=== PATIENT | female | born 1955 | race Caucasian/White ===

== ENCOUNTER → 2017-01-28 | Outpatient (CLI) | payer OTHER ==
--- NOTE | 2017-01-28 14:32 | CARD ---
APPROVED REPORT EXAM: Two-dimensional and M-mode echocardiogram with Doppler and color Doppler. Other Information Quality : Average Rhythm : NSR INDICATION Dyspnea 2D DIMENSIONS RVDd2.9 (2.9-3.5cm)Left Atrium(2D)2.8 (1.6-4.0cm) IVSd0.8 (0.7-1.1cm)Aortic Root(2D)2.6 (2.0-3.7cm) LVDd3.5 (3.9-5.9cm)LVOT Diameter1.9 (1.8-2.4cm) PWd0.8 (0.7-1.1cm)LVDs2.4 (2.5-4.0cm) FS (%) 31.5 %SV31.7 ml LVEF(%)60.4 (>50%) Aortic Valve AoV Peak Moisés.104.7cm/sAoV VTI20.3cm AO Peak GR.4.4mmHgLVOT Peak Moisés.82.6cm/s AO Mean GR.3mmHgAVA (VMAX)2.17cm2 Mitral Valve MV E Ftzhaeqm07.1cm/sMV E Peak Gr.4mmHg MV DECEL [id number] A Ddfkbujm33.7cm/s MV E Mean Gr.1mmHgMV WKV26wg E/A Ratio0.7MV A Lsbvgvkv639yh MVA (PHT)3.56cm2 Tricuspid Valve TR P. Hknntgom250wv/sRAP YHFJFRWL1ixPd TR Peak Gr.67kdPjLIPO02ktNz LEFT VENTRICLE The left ventricle is normal size. There is normal left ventricular wall thickness. Left ventricle sy stolic function is normal. The Ejection Fraction is 55-60%. There is normal LV segmental wall motion. Tissue Doppler imaging reveals mild left ventricular diastolic dysfunction. Transmitral Doppler flow pattern is Grade I-abnormal relaxation pattern. RIGHT VENTRICLE The right ventricle is normal size. The right ventricular systolic function is normal. ATRIA The left atrium size is normal. The right atrium size is normal. The interatrial septum is intact wit h no evidence for an atrial septal defect or patent foramen ovale as noted on 2-D or Doppler imaging. AORTIC VALVE The aortic valve is normal in structure and function. The aortic valve is trileaflet. Doppler and Col or Flow revealed no significant aortic regurgitation. There is no significant aortic valvular stenosi s. MITRAL VALVE The mitral valve is normal in structure and function. There is no mitral valve stenosis. Doppler and Color Flow revealed no mitral valve regurgitation noted. TRICUSPID VALVE The tricuspid valve is normal in structure and function. Doppler and Color Flow revealed trace to mil d tricuspid regurgitation. The PA pressure was estimated at 23 mmHg. There is no tricuspid valve sten osis. PULMONIC VALVE The pulmonic valve is not well visualized. Doppler and Color Flow revealed no pulmonic valvular regur gitation. There is no pulmonic valvular stenosis. GREAT VESSELS The aortic root is normal in size. Normal pulmonary venous flow (Doppler). The IVC is normal in size and collapses >50% with inspiration. PERICARDIAL EFFUSION There is no evidence of significant pericardial effusion. Critical Notification Critical Value: No <Conclusion> The left ventricle is normal size. Left ventricle systolic function is normal. The Ejection Fraction is 55-60%. There is no significant aortic valvular stenosis. Doppler and Color Flow revealed no significant aortic regurgitation. Doppler and Color Flow revealed no mitral valve regurgitation noted. Doppler and Color Flow revealed trace to mild tricuspid regurgitation. The PA pressure was estimated at 23 mmHg.
--- NOTE | 2017-01-28 15:36 | RAD ---
EXAM: Chest 2 views. HISTORY: Shortness of breath. COMPARISON: None. FINDINGS: Frontal and lateral views of the chest are obtained. There are no confluent infiltrates. There is no pneumothorax or pleural effusion. The heart is not enlarged. Bilateral breast implants are noted. IMPRESSION: 1. No confluent infiltrates.
== END | disposition home or self-care (01) ==
LOC: ECHO 13:00
PROVIDERS: ATTEND Internal Medicine Cardiovascular Disease
DX: R06.02 Shortness of breath (principal); R06.00 Dyspnea, unspecified; I07.1 Rheumatic tricuspid insufficiency
CPT/HCPCS: 71020; 93306

== ENCOUNTER → 2021-01-07 | Outpatient (CLI) | payer OTHER ==
[~2021-01-07] MED LIST: REGADENOSON 0.4 MG/5 ML DISP.SYRIN. IV ONE
--- NOTE | 2021-01-07 17:41 | RAD ---
MR#: [id number] Date of Study: 01/07/2021 Ordering Physician: KEYONNA MORALES, Referring Physician: MAR PATEL Tech: RT Josephine (R) (N) APPROVED REPORT Test Type: Pharmacological Stress Nurse/Tech: katia Henderson RN Test Indications: dyspnea on exertion Cardiac History: No known cardiac Medications: See Electronic Medical Record Medical History: See Electronic Medical Record Resting ECG: SR Resting Heart Rate: 69 bpm Resting Blood Pressure: 125/61mmHg Pretest Chest Pain: None Nurse/Tech Notes lungs CTA, S1S2 Consent: The procedure was explained to the patient in lay terms. Informed consent was witnessed. Terry eout was entered into [employer]. History and Stress Test performed by RT Darwin (Zhou) (N) Pharm. Details Pharmacologic stress testing was performed using 0.4mg per 5ml of regadenoson given intravenously ove r 7-10 seconds. Stress Symptoms No chest pain or symptoms. POST EXERCISE Reason for Termination: Infusion complete Max HR: 128 bpm Max Blood Pressure: 130/55mmHg Blood Pressure response to exercise: Normal blood pressure response during stress. Heart Rate response to exercise: normal response Chest Pain: No. Arrhythmia: No. ST Change: No. INTERPRETATION Stress EKG Conclusion: The resting EKG shows a sinus rhythm and nonspecific ST-T wave changes. The stress EKG shows no significant changes from baseline. No EKG evidence of stress-induced ischemia. Imaging Protocol IMAGE PROTOCOL: Rest Tc-99m/stress Tc-99m 1 day Rest: Stress: Viability: Radiopharm.Tc99m DznoykqrfTq05k Sestamibi Dose10.5mCi 30.8mCi Duration 15min. 15min. Img Date 01/07/2021 01/07/2021 Inj-Img Dzhg07frk. 60min. Rest Admin Site:IV - Left AntecubitalAdministrator:RT Josephine (R)(N) Stress Admin Site: IV - Left AntecubitalAdministrator: RT Deonte Granados)(N) STRESS DATA End Diast. Vol.47.0mlAv. Heart Rate92.0bpm End Syst. Vol.2.0mlCO Index BSA0.0L/min Myocardial Mass90.0gEject. Uawzotny13.0% Stress Rates Pk. Fill Rate3.24EDV/secLVtime Pk. Fill 95.65msec Pk. Empty Rate4.86ESV/secLVtime Pk. Bhtzr155.64msec 1/3 Pk. Fill1.87EDV/sec Stress Scores Regional WT0.00Summed WT0.00 Regional WM0.00Summed WM0.00 LV Perfusion The stress images show no significant defects. The rest images show no significant defects. Nuclear imaging shows no reversible ischemia or infarct. Wall Motion Left ventricular systolic function is normal with no regional wall motion abnormalities and an ejecti on fraction of greater than 70%. LV Perf. Quant 17 Seg. SSS0.00 17 Seg. SRS0.00 17 Seg. SDS0.00 Stress Defect Extent (% LAD)0.00Rest Defect Extent (% LAD)0.00Rev. Defect Extent (% LAD)0.00 Stress Defect Extent (% LCX) 0.00Rest Defect Extent (% LCX)0.00Rev. Defect Extent (% LCX)0.00 Stress Defect Extent (% RCA)0.00Rest Defect Extent (% RCA)0.00Rev. Defect Extent (% RCA)0.00 Stress Defect Extent (% SHANI)0.00Rest Defect Extent (% SHANI)0.00Rev. Defect Extent (% SHANI)0.00 Conclusion 1. No EKG evidence of stress-induced ischemia. 2. Nuclear imaging shows no reversible ischemia or infarct. 3. Left ventricular systolic function is normal with an ejection fraction of greater than 70%. 4. Low risk Lexiscan nuclear stress test. Signed by : Keyonna Morales MD Electronically Approved : 01/07/2021 17:40:56
== END ==
LOC: NM 11:05
PROVIDERS: ATTEND Internal Medicine Cardiovascular Disease
DX: R06.09 Other forms of dyspnea (principal)
CPT/HCPCS: 78452; 93017; A9500; J2785